=== PATIENT | female | born 1990 | race Caucasian/White ===

== ENCOUNTER 2017-05-03 03:59 | Emergency (ER) | payer OTHER | END 2017-05-03 05:23 | disposition home or self-care (01) | LOC: FTE 03:59 | DX: J02.9 Acute pharyngitis, unspecified (principal) | CPT/HCPCS: 99283; Z7502 ==

== ENCOUNTER 2017-07-04 20:12 | Inpatient (IN) | payer OTHER ==
[2017-07-04] MEDS: LACTATED RINGER'S 1,000 ML IV (21:01)
[2017-07-04] MEDS ORDERED: LIDOCAINE 1% (MPF) 30 ML INJ INJ (21:30)
[2017-07-04] MEDS ORDERED: IBUPROFEN 600 MG TAB PO (21:30)
[2017-07-04] MEDS ORDERED: CARBOPROST 250 MCG INJ IM (21:30)
[2017-07-04] MEDS ORDERED: OXYTOCIN 30 UNITS/LR 500 ML IV (21:30)
[2017-07-04] MEDS ORDERED: METHYLERGONOVINE 0.2 MG INJ IM (21:30)
[2017-07-04] MEDS ORDERED: MISOPROSTOL 200 MCG TAB PR (21:30)
[2017-07-04] MEDS ORDERED: OXYCODONE/ACETAMINOPHEN (5/325) TAB PO (21:30)
[2017-07-04] MEDS ORDERED: BUTORPHANOL 2 MG INJ IV (21:30)
[2017-07-04 21:51] LABS: ADD MAN DIFF? NO
[2017-07-04 21:54] LABS: WHITE BLOOD COUNT 7.6 10^3/ul (4.8-10.8)
[2017-07-04 21:54] LABS: BASOPHILS % 0.3 % (0.0-2.0); EOSINOPHILS # 0.1 10^3/ul (0.0-0.5); HEMATOCRIT 36.7 % (37.0-47.0); HEMOGLOBIN 12.6 g/dl (12.0-16.0); LYMPHOCYTES # 2.1 10^3/ul (0.8-2.9); LYMPHOCYTES % 27.8 % (15.0-51.0); MEAN CORPUSCULAR HEMOGLOBIN 29.2 pg (29.0-33.0); MEAN CORPUSCULAR HGB CONC 34.3 g/dl (32.0-37.0); MEAN CORPUSCULAR VOLUME 85.2 fl (82.0-101.0); MEAN PLATELET VOLUME 10.5 fl (7.4-10.4); MONOCYTE # 0.6 10^3/ul (0.3-0.9); MONOCYTES % 7.9 % (0.0-11.0); NEUTROPHIL # 4.8 10^3/ul (1.6-7.5); NEUTROPHILS % 62.5 % (39.0-77.0); PLATELET COUNT 281 10^3/UL (140-415); RED BLOOD COUNT 4.31 10^6/ul (4.20-5.40); RED CELL DISTRIBUTION WIDTH 13.8 % (11.5-14.5)
[2017-07-04 22:12] LABS: INR 0.82; PROTIME 11.4 Sec (11.9-14.9); PT RATIO 0.9
[2017-07-04 22:13] LABS: PARTIAL THROMBOPLASTIN TIME 29.7 Sec (25.0-35.0)
[2017-07-04 22:44] LABS: HEPATITIS B SURFACE ANTIGEN NEGATIVE (NEGATIVE)
[2017-07-04] MEDS: OXYTOCIN 30 UNITS/LR 500 ML IV (23:00)
[2017-07-05] MEDS: LACTATED RINGER'S 1,000 ML IV ×3 (05:10→20:33)
[2017-07-05] MEDS: CITRIC ACID/SODIUM CITRATE 15 ML CUP PO (11:30)
[2017-07-05 15:01] LABS: RAPID PLASMA REAGIN NONREACTIVE (NR)
[2017-07-05] MEDS ORDERED: ONDANSETRON 4 MG INJ IV (20:30)
[2017-07-05] MEDS ORDERED: NALOXONE (0.4 MG/ML) INJ IV (20:30)
[2017-07-05] MEDS ORDERED: FENTAnyl 2MCG/ML-ROPIV 0.2% 100 ML BAG EPI (20:30)
[2017-07-05] MEDS ORDERED: FENTAnyl 2MCG/ML-ROPIV 0.2% 100 ML (20:32)
[2017-07-06] MEDS: OXYTOCIN 30 UNITS/LR 500 ML IV ×2 (01:12→01:14)
[2017-07-06] MEDS: MINERAL OIL LIGHT 10 ML VIAL TOP (01:18)
[2017-07-06] MEDS: DIPHENHYDRAMINE 50 MG INJ IV (02:41)
[2017-07-06] MEDS: LACTATED RINGER'S 1,000 ML IV* (03:38)
[2017-07-06] MEDS ORDERED: MISOPROSTOL 200 MCG TAB PR (04:00)
[2017-07-06] MEDS ORDERED: METHYLERGONOVINE 0.2 MG INJ IM (04:00)
[2017-07-06] MEDS ORDERED: ZOLPIDEM 5 MG TAB PO (04:00)
[2017-07-06] MEDS ORDERED: HYDROCODONE/APAP (5/325) TAB PO ×2 (04:00)
[2017-07-06] MEDS ORDERED: CARBOPROST 250 MCG INJ IM (04:00)
[2017-07-06] MEDS ORDERED: BENZOCAINE 20% 56 ML SPRAY TOP (04:00)
[2017-07-06] MEDS ORDERED: OXYTOCIN 30 UNITS/LR 500 ML IV (04:00)
[2017-07-06] MEDS ORDERED: WITCH HAZEL/GLYCERIN PAD PR (04:00)
[2017-07-06] MEDS ORDERED: DIBUCAINE 1% 30 GM OINT PR (04:00)
[2017-07-06] MEDS: CEPHALEXIN 500 MG CAP PO ×4 (05:22→23:59)
[2017-07-06] MEDS: IBUPROFEN 600 MG TAB PO ×4 (05:22→23:59)
[2017-07-06] MEDS: MAGNESIUM HYDROXIDE 30ML CUP PO ×2 (09:28→21:11)
[2017-07-06] MEDS: SENNA/DOCUSATE NA (8.6MG/50MG) TAB PO ×2 (09:28→21:11)
[2017-07-07] MEDS: CEPHALEXIN 500 MG CAP PO ×4 (06:25→23:43)
[2017-07-07] MEDS: IBUPROFEN 600 MG TAB PO ×3 (06:25→17:48)
[2017-07-07] MEDS: MAGNESIUM HYDROXIDE 30ML CUP PO ×2 (10:23→21:00)
[2017-07-07] MEDS: LANOLIN 7 GM TUBE TOP (10:23)
[2017-07-07] MEDS: SENNA/DOCUSATE NA (8.6MG/50MG) TAB PO ×2 (10:23→21:00)
[2017-07-07 10:50] LABS: ADD MAN DIFF? NO
[2017-07-07 10:56] LABS: BASOPHILS % 0.4 % (0.0-2.0); EOSINOPHILS # 0.1 10^3/ul (0.0-0.5); EOSINOPHILS % 1.1 % (0.0-7.0); HEMATOCRIT 33.5 % (37.0-47.0); HEMOGLOBIN 11.1 g/dl (12.0-16.0); LYMPHOCYTES # 2.1 10^3/ul (0.8-2.9); LYMPHOCYTES % 21.4 % (15.0-51.0); MEAN CORPUSCULAR HEMOGLOBIN 28.8 pg (29.0-33.0); MEAN CORPUSCULAR HGB CONC 33.1 g/dl (32.0-37.0); MEAN PLATELET VOLUME 10.6 fl (7.4-10.4); MONOCYTE # 0.5 10^3/ul (0.3-0.9); MONOCYTES % 5.1 % (0.0-11.0); NEUTROPHIL # 7.1 10^3/ul (1.6-7.5); NEUTROPHILS % 71.4 % (39.0-77.0); PLATELET COUNT 255 10^3/UL (140-415); RED BLOOD COUNT 3.85 10^6/ul (4.20-5.40); RED CELL DISTRIBUTION WIDTH 14.5 % (11.5-14.5)
[2017-07-08] MEDS: IBUPROFEN 600 MG TAB PO ×3 (05:37→11:51)
[2017-07-08] MEDS: CEPHALEXIN 500 MG CAP PO ×2 (05:37→11:51)
[2017-07-08] MEDS: VARICELLA VACCINE LIVE/PF 1,350 UNIT/0.5 ML ML SC* (09:00)
[2017-07-08] MEDS: SENNA/DOCUSATE NA (8.6MG/50MG) TAB PO (09:00)
[2017-07-08] MEDS: MAGNESIUM HYDROXIDE 30ML CUP PO (09:00)
[2017-07-08] MEDS: MEASLES,MUMPS,RUBELLA VACCINE INJ SC* (09:00)
[2017-07-08] MEDS: DIPHTH/TET/ACEL PERTUSS (ADULT) 0.5 ML VIAL IM* (09:00)
== END 2017-07-08 14:41 | disposition home or self-care (01) | DRG 775 ==
LOC: PP1 07-06 03:23 → L-D 20:12
PROVIDERS: Obstetrics & Gynecology
PROC: 10E0XZZ Delivery of Products of Conception, External Approach (ICD-10-PCS; principal; 2017-07-06)
PROC: 3E033VJ Introduction of Other Hormone into Peripheral Vein, Percutaneous Approach (ICD-10-PCS; 2017-07-06)
DX: O40.3XX0 Polyhydramnios, third trimester, not applicable or unspecified (principal); O48.0 Post-term pregnancy; O69.81X0 Labor and delivery complicated by cord around neck, without compression, not applicable or unspecified; Z3A.40 40 weeks gestation of pregnancy; Z3A.39 39 weeks gestation of pregnancy; Z37.0 Single live birth
CPT/HCPCS: 62319; 76815; 85025; 85610; 85730; 86592; 86850; 86900; 86901; 87340; 99464